=== PATIENT | male | born 1995 | race Caucasian/White ===

== ENCOUNTER 2023-02-27 17:32 | Emergency (ER) | payer SELFPAY ==
[2023-02-27] VITALS (16 sets, daily range): BP systolic 100–155; BP diastolic 75–97; PULSE 69–99; RESP 11–19; TEMP 36.9; O2SAT 98–100
--- NOTE | ~2023-02-27 | XR_ITS ---
EXAMINATION: XR chest 1V portable Exam Date/Time: 02/27/2023 18:05 CDT HISTORY: chest pain X 3 DAYS WITH DIZZINESS Comparison: 05/08/2015. RESULT: Lines, tubes, and devices: None. Lungs and pleura: Clear. Cardiomediastinal silhouette: Stable. Other: No acute osseous or upper abdominal finding. IMPRESSION: No acute cardiopulmonary process. Reviewed, dictated and finalized at location [facility].
--- NOTE | 2023-02-27 17:33 | ECG_ITS ---
Measurements Intervals [place] Rate: 109 P: 55 [place]: 154 QRS: 78 QRSD: 84 T: 9 QT: 316 QTc: 427 Interpretive Statements SINUS TACHYCARDIA NONSPECIFIC T-WAVE ABNORMALITY- ANTEROLAT/INF LEADS ABNORMAL ECG NO PREVIOUS ECG AVAILABLE FOR COMPARISON Electronically Signed On 02-27-2023 18:45:12 CDT by Rex Carrillo D.O.
[2023-02-27 18:12] LABS: Basophils Absolute Auto 0.1 K/mm3 (0.0-0.1); Basophils Percent Auto 1.4 % (0.2-1.2); Eosinophils Absolute Auto 0.3 K/mm3 (0-0.3); Eosinophils Percent Auto 2.7 % (0-4.4); Hemoglobin 15.3 g/dL (14.0-18.0); Immature Granulocyte Absolute 0.03 K/mm3 (0.00-0.031); Immature Granulocyte Percent A 0.3 % (0-0.5); Lymphocytes Absolute Auto 2.52 K/mm3 (0.9-3.2); Lymphocytes Percent Auto 26.8 % (18.3-44.2); Mean Corpuscular HGB Conc 34.8 g/dl (32-36); Mean Corpuscular Hemoglobin 31.4 pg (26-34); Mean Corpuscular Volume 90.3 fl (80-100); Mean Platelet Volume 9.7 fl (7.4-10.4); Monocytes Absolute Auto 0.5 K/mm3 (0.1-0.6); Monocytes Percent Auto 5.4 % (2.6-8.5); Neutrophils Percent Auto 63.4 % (45.5-73.1); Platelet Count Result 281 k/mm3 (150-375); Red Blood Count 4.87 M/mm3 (4.6-6.20); Red Cell Distribution Width 13.2 % (11.5-14.5); White Blood Count 9.4 K/mm3 (4.5-10.0)
[2023-02-27 18:21] LABS: Alanine Aminotransferase 44 U/L (6-50); Albumin Level 5.1 g/dL (3.5-5.1); Alkaline Phosphatase 80 U/L (38-126); Anion Gap 10 mmol/L (8-16); Aspartate Amino Transferase 30 U/L (17-59); Bilirubin,Total 0.5 mg/dL (0.2-1.3); Blood Urea Nitrogen 10 mg/dL (9-20); Calcium 9.9 mg/dL (8.4-10.2); Carbon Dioxide 29 mmol/L (22-30); Chloride 102 mmol/L (98-107); Estimated CRCL calculation 170 ml/min; Estimated Glomerular Filt Rate > 60; Glucose 108 mg/dL (65-110); Lipase 78 U/L (23-300); Potassium 3.9 mmol/L (3.4-5.0); Sodium 141 mmol/L (137-145)
[2023-02-27 18:22] LABS: INR 0.9
--- NOTE | 2023-02-27 18:22 | ED.CHESTPAIN ---
HPI - Chest Pain General Chief Complaint: Chest Pain Stated Complaint: chest pain Time Seen by Provider: 02/27/23 17:54 History of Present Illness HPI narrative: 27-year-old male presented the emergency department for evaluation of 3 days of intermittent chest pain cough and shortness of breath. Patient states symptoms been going on for 3 days. Patient states the chest pain is intermittent. Patient states he is not having any chest pain at that time. Patient denies any prior history of coronary disease and denies any prior history of PE or DVT. Related Data Allergies Allergy/AdvReac Type Severity Reaction Status Date / Time No Known Allergies Allergy Mild Verified 02/27/23 17:32 Review of Systems Review of Systems: All systems reviewed & are unremarkable except as noted in HPI and below Exam Narrative: APPEARANCE: Well appearing, no pain, no distress, well-nourished. HEAD: normocephalic, atraumatic. EYES: PERRLA/EOMI, conjunctivae clear. NOSE: Normal no drainage NECK: Supple. No adenopathy, no masses. RESPIRATORY: Airway patent, respirations nonlabored. Clear to auscultation bilaterally, no rales, rhonchi, wheezing. CARDIOVASCULAR: Regular rate and rhythm without murmurs rubs or gallops. ABDOMINAL: Soft, nontender, nondistended, normal bowel sounds MUSCULOSKELETAL: Moves all extremities. Strength/ROM intact, No edema, No calf tenderness. NEURO: Alert. Cranial nerves II through XII intact. Grossly intact SKIN: Warm, dry. Normal Color Course Course Emergency Course: 27-year-old male presented emergency department for evaluation of intermittent bilateral chest pain. Patient is afebrile with no leukocytosis. Patient's D-dimer was not elevated. Patient's CMP is similar to his baseline. Patient had negative serial troponins. Chest x-ray shows no acute cardiopulmonary normality. EKG did show some sinus tachycardia. Patient was after the results of his work-up and was encouraged of close follow-up with her primary care physician and for outpatient cardiac testing as needed. All question concerns were addressed Vital Signs Vital signs: Vital Signs Temperature 98.4 F 02/27/23 17:41 Pulse Rate 98 02/27/23 17:41 Respiratory Rate 16 02/27/23 17:41 Blood Pressure 138/97 H 02/27/23 17:41 Pulse Oximetry 98 02/27/23 17:41 Oxygen Delivery Room Air 05/04/23 17:41 Temperature 98.4 F 02/27/23 17:41 Pulse Rate 86 02/27/23 21:16 Respiratory Rate 14 02/27/23 21:16 Blood Pressure 126/89 02/27/23 21:16 Pulse Oximetry 99 02/27/23 21:16 Oxygen Delivery Room Air 02/27/23 17:41 MDM - Chest Pain Differential Diagnosis Differential diagnosis: Likely pneumothorax, atypical chest pain, costochondritis and chest pain Lab Data Attestation: I reviewed the patient's lab results. 02/27/23 18:00 02/27/23 18:00 Labs: Lab Results 02/27/23 02/27/23 Range/Units 18:00 20:41 WBC 9.4 (4.5-10.0) K/mm3 RBC 4.87 (4.6-6.20) M/mm3 Hgb 15.3 (14.0-18.0) g/dL Hct 44.0 (42.0-52.0) % MCV 90.3 (80-100) fl MCH 31.4 (26-34) pg MCHC 34.8 (32-36) g/dl RDW 13.2 (11.5-14.5) % Plt Count 281 (150-375) k/mm3 MPV 9.7 (7.4-10.4) fl Immature Gran % (Auto) 0.3 (0-0.5) % Neut % (Auto) 63.4 (45.5-73.1) % Lymph % (Auto) 26.8 (18.3-44.2) % [facility] % (Auto) 5.4 (2.6-8.5) % Eos % (Auto) 2.7 (0-4.4) % Baso % (Auto) 1.4 H (0.2-1.2) % Lymph # (Auto) 2.52 (0.9-3.2) K/mm3 [facility] # (Auto) 0.5 (0.1-0.6) K/mm3 Eos # (Auto) 0.3 (0-0.3) K/mm3 Baso # (Auto) 0.1 (0.0-0.1) K/mm3 Abs Immat Gran (auto) 0.03 (0.00-0.031) K/mm3 Absolute Neuts (auto) 6.0 (1.3-6.7) K/mm3 Absolute Nucleated RBC 0.0 (0.0-0.012) K/mm3 Nucleated RBC % 0.0 (0.0-0.2) % PT 13.0 (11.1-14.7) Seconds INR 0.9 APTT 24.0 (22.3-36.8) SECONDS D-Dimer 0.36 (<0.48) ug/mL Sodium 141 (137-145) mmol/L Potassium 3.9 (3.4-5.0) m
[2023-02-27 18:32] LABS: Troponin I < 0.012 ng/mL (0.000-0.034)
[2023-02-27 18:59] LABS: D Dimer 0.36 ug/mL (<0.48)
[2023-02-27 21:08] LABS: Troponin I < 0.012 ng/mL (0.000-0.034)
== END 2023-02-27 21:35 | disposition home or self-care (01) ==
PROVIDERS: Emergency Provider Emergency Medicine
DX: R07.89 Other chest pain (principal); R00.0 Tachycardia, unspecified; R94.31 Abnormal electrocardiogram [ECG] [EKG]
CPT/HCPCS: 36415; 71045; 80053; 83690; 84484; 85025; 85380; 85610; 85730; 93005; 99284

== ENCOUNTER 2023-12-05 19:25 | Emergency (ER) | payer OTHER, SELFPAY ==
[2023-12-05 19:37] VITALS: BP 148/109; PULSE 87; RESP 16; TEMP 36.9; O2SAT 99
--- NOTE | 2023-12-05 19:48 | ED.GENADULT ---
HPI - General Adult General Chief complaint: Extremity Injury, Lower Stated complaint: work note Source: patient, RN notes reviewed and old records reviewed Mode of arrival: ambulatory Limitations: no limitations History of Present Illness HPI narrative: [age] year male patient presents to [facility] with complaints of left ankle pain. patient stands twisted ankle while at work yesterday. Patient states stayed home from work today and iced and rested ankle. Patient states ankle is improved but needs work note to return to work. Related Data Allergies Allergy/AdvReac Type Severity Reaction Status Date / Time No Known Allergies Allergy Mild Verified 12/05/23 19:37 Review of Systems Constitutional: Constitutional: Reports no additional constitutional complaints, Denies body ache(s), Denies chills, Denies fatigue, Denies fever(s) and Denies headache(s) Eyes: Eyes: Reports no additional eye complaints and Denies blurry vision ENT: Reports system reviewed and no additional complaints, except as documented, Denies vertigo, Denies dizziness, Denies ear discharge, Denies otalgia, Denies facial pain, Denies headache(s), Denies nasal congestion, Denies nasal discharge, Denies sinus pain, Denies sinus pressure and Denies sore throat Cardiovascular: Cardiovascular: Reports no additional cardiovascular complaints, Denies chest pain, Denies chest pain at rest, Denies rapid heart rate and Denies dyspnea Respiratory: Respiratory: Reports no additional respiratory complaints, Denies chest congestion, Denies cough, Denies pain on inspiration, Denies pain with cough and Denies dyspnea Gastrointestinal: Gastrointestinal: Denies abdominal pain, Denies diarrhea, Denies nausea and Denies vomiting Musculoskeletal: Comments: Left ankle pain Integumentary/Breasts: Skin/Breast: Denies rash Neurologic: Reports system reviewed and no additional complaints, except as documented, Denies vertigo, Denies dizziness and Denies headache(s) Endocrine: Endocrine: Denies fatigue PMFSH Comments At the time of my signature, I reviewed and agree with the nursing past medical, surgical, social, and family history. There is no relevant family history pertinent to the patient complaint. Exam Const: General: cooperative, healthy appearing, no acute distress and well nourished Nutritional Appearance: well nourished Orientation/consciousness: patient oriented x3 Limitations: no limitations HENMT: Head: normal to inspection and normocephalic Ears: external ears normal, TM's normal bilaterally, mastoids normal and Abnormal EAC present Face/Nose/Sinus: normal facial exam Face and sinus: normal facial exam Mouth: Yes Normal oral and palatal mucosa present, Yes oropharynx normal and Yes moist mucous membranes Throat: tonsils normal, uvula midline and no uvular edema Eyes: General: appearance normal, both eyes and all related structures Sclera: sclerae normal Pupils: Equal, round and reactive pupils present Resp: Effort & Inspection: normal respiratory effort, able to speak in complete sentences, no audible wheezes, no cough, no respiratory distress and no retractions Skin: General skin exam: normal color and no rashes or lesions noted Neuro: General: patient oriented x3 Cranial nerves: Yes Equal, round and reactive pupils present Extrem: Left lower extremity: normal to inspection, full ROM, normal capillary refill, hip/thigh, ankle Details: normal to inspection, abnormal to inspection, no edema and normal ROM; no tenderness, no swelling, no warmth, no abrasions, no lacerations, no ecchymosis, no crepitus, no foreign bodies, no penetrating wound and achilles tendon exam normal and foot Details: normal capillary refill, normal to inspection, abnormal to inspection and toes with normal ROM; no tenderness, no unusual warmth and edema noted; no cyanosis, no edema and joint enlargement noted Psych: Appearance: grossly normal Mental Status: mental status [place]
== END 2023-12-05 19:55 | disposition home or self-care (01) ==
PROVIDERS: Emergency Provider Registered Nurse
DX: S93.402A Sprain of unspecified ligament of left ankle, initial encounter (principal); S96.912A Strain of unspecified muscle and tendon at ankle and foot level, left foot, initial encounter; X50.9XXA Other and unspecified overexertion or strenuous movements or postures, initial encounter
CPT/HCPCS: 99212; G0463